=== PATIENT | female | born 1950 | race Caucasian/White ===

== ENCOUNTER 2023-04-22 08:08 | Outpatient (OUT) | payer MEDICARE, SELFPAY ==
[2023-04-22 09:03] LABS: Basophils Percent Auto 0.5 % (0.2-2.0); Eosinophils Absolute Auto 0.1 10^3/uL (0.0-0.7); Eosinophils Percent Auto 1.6 % (0.9-7.0); Hematocrit 41.9 % (36.0-48.0); Hemoglobin 13.3 g/dL (12.0-16.0); Immature Granulocytes Abs Auto 0.02 10^3/uL (0.00-0.03); Immature Granulocytes Pct Auto 0.3 % (0.0-0.5); Lymphocytes Absolute Auto 1.7 10^3/uL (1.2-3.8); Lymphocytes Percent Auto 23.7 % (20.5-60.0); Mean Corpuscular HGB Conc 31.7 g/dL (29.9-35.2); Mean Corpuscular Hemoglobin 28.2 pg (26.7-34.0); Mean Corpuscular Volume 88.8 fL (81.0-99.0); Mean Platelet Volume 8.9 fL (9.5-13.5); Monocytes Absolute Auto 0.5 10^3/uL (0.3-0.8); Monocytes Percent Auto 7.4 % (1.7-12.0); Neutrophils Absolute Auto 4.8 10^3/uL (1.4-6.5); Neutrophils Percent Auto 66.5 % (43.0-75.0); Platelet Count 319 10^3/uL (150-450); Red Blood Count 4.72 10^6/uL (4.20-5.40); Red Cell Distribution Width 12.1 % (11.0-15.0); White Blood Count 7.3 10^3/uL (4.0-11.0)
[2023-04-22 11:33] LABS: Alanine Aminotransferase 32 U/L (14-59); Albumin Level 3.5 g/dL (3.4-5.0); Alkaline Phosphatase 46 U/L (46-116); Anion Gap 11.9; Aspartate Amino Transferase 25 U/L (15-37); BUN Creatinine Ratio 22.4; Bilirubin Total 0.5 mg/dL (0.2-1.0); Calcium 9.5 mg/dL (8.5-10.1); Carbon Dioxide 31.2 mmol/L (21.0-32.0); Chloride 102 mmol/L (98-107); Chol HDL Ratio 2.7; Cholesterol 207 mg/dL (<=200); Estimated GFR (African America >60 (>=60); Estimated GFR (Non-African Ame >60 (>=60); Globulin 3.5 g/dL; Glucose 102 mg/dL (74-106); HDL Cholesterol 76 mg/dL (40-60); Potassium 4.1 mmol/L (3.5-5.1); Sodium 141 mmol/L (136-145); Triglycerides 109 mg/dL (<=150); VLDL CHOLESTEROL 21.8 mg/dL
== END 2023-04-22 08:09 | disposition home or self-care (01) ==
LOC: LAB 08:13
PROVIDERS: PCP Family Medicine; Visit Provider Family Medicine
DX: Z00.00 Encounter for general adult medical examination without abnormal findings (principal); I10 Essential (primary) hypertension
CPT/HCPCS: 36415; 80053; 80061; 85025

== ENCOUNTER 2023-12-10 10:21 | Outpatient (OUT) | payer MEDICARE, SELFPAY ==
--- NOTE | 2023-12-10 | MM_ITS ---
Patient Name: SLADE SHEPHERD MR#: [id number] : 1950 Exam Date: 12/10/2023 Ordering Doctor: DR Cartachita Ga M.D. RADIOLOGY REPORT PROCEDURE: MM TOMOSYNTHESIS SCREENING BI COMPARISON: MG MAMM SCREEN 3D ELOISE CAD, 07/11/2021. MG MAMM DX 3D LT CAD, 01/10/2021. MG MAMM SCREEN 3D ELOISE CAD, 06/22/2020. MG MAMM ELOISE SCRN W CAD DIG, 05/07/2010. INDICATIONS: SCREENING Calculator Name NCI Breast Cancer Risk Assessment Tool 5 Year Breast Cancer Risk 1.40% Lifetime Breast Cancer Risk 3.80% Personal Breast Cancer No Personal Ovarian Cancer No Treatments None Family Cancers Sister with lung cancer at age 59. LOCATION: [facility] BREAST COMPOSITION: The breasts are heterogeneously dense,which may obscure small masses. FINDINGS: DIAGNOSTIC CATEGORY 2--BENIGN FINDING: RIGHT BREAST: No significant suspicious finding. Scattered benign-appearing calcifications are present. No significant change has occurred. LEFT BREAST: No significant suspicious finding. Scattered benign-appearing calcifications are present. No significant change has occurred. RECOMMENDATIONS: ROUTINE MAMMOGRAM AND CLINICAL EVALUATION IN 12 MONTHS. PLEASE NOTE: A NORMAL MAMMOGRAM DOES NOT EXCLUDE THE POSSIBILITY OF BREAST CANCER. A CLINICALLY SUSPICIOUS PALPABLE LUMP SHOULD BE BIOPSIED. Dictated by: Luis Wells M.D. on 12/12/2023 at 12:45 Approved by: Luis Wells M.D. on 12/12/2023 at 12:49
--- OUTSIDE RECORDS SUMMARY | 2023-12-10 10:41 | XMS_ITS | CCD ---
Author Organization [facility] CliniSyny Care Team Providers Care Cardiac Specialist Name Role Phone LUIS, DR CATRACHITA Steele Admitting Unavailable LUIS, DR CATRACHITA Steele Attending Unavailable SMITH, DR CATRACHITA Steele Primary Care Unavailable WEST, DR TRUDI Morris Consulting Unavailable RENETTA, DR CECILY Sierra Consulting Unavailable SMITH, DR CATRACHITA Steele Consulting Unavailable LUIS, DR CATRACHITA Steele Admitting Unavailable SMITH, DR CATRACHITA Steele Attending Unavailable SMITH, DR CATRACHITA Steele Primary Care Unavailable WEST, DR TRUDI Morris Consulting Unavailable LUIS, DR CATRACHITA Steele Consulting Unavailable LUIS, DR CATRACHITA Steele Admitting Unavailable SMITH, DR CATRACHITA Steele Attending Unavailable SMITH, DR CATRACHITA Steele Primary Care Unavailable SMITH, DR CATRACHITA Steele Consulting Unavailable OleApolinar morales Unavailable Gaby Mohan Unavailable MD Gaby Mohan Attending Provider REJI ALANIZ Attending Unavailable Catrachita Smith Primary Care Unavailable REJI ALANIZ Admitting Unavailable Catrachita Smith Primary Care Unavailable José Miguel Martinez Admitting Unavailable José Miguel Martinez Attending Unavailable Catrachita Smith Unavailable Asaad, Imad Unavailable MD Catrachita Smith Primary Care Provider MD Niecy Caceres Attending Provider [phone] MD Catrachita Smith Primary Care Provider MD Morris Imronda Attending Provider [phone] Catrachita Smith Primary Care Unavailable Asaad, Imad Admitting Unavailable Asaad, Imad Attending Unavailable Catrachita Smith Primary Care Unavailable Asaad, Imad Admitting Unavailable Asaad, Imad Attending Unavailable Allergies Allergy Classification Reported Allergen(s) Allergy Type Date of Onset Reaction(s) Facility (1 source) No Known Medication Allergies; Translations: [No Known Medication Allergies] Propensity to adverse reactions to drug (disorder) [facility] Repository (4 sources) Vaccine product containing Influenza virus antigen (medicinal product) Drug allergy 8 Unknown [employer] Other (4 sources) patient allergy list reviewed by nurse or physicia Propensity to adverse reactions 6 Comment:Done [employer] Other (4 sources) Allergies Reconciled Propensity to adverse reactions Unknown [employer] Other (1 source) Influenza Virus Vaccines Drug allergy (disorder) 4 [facility] Repository Medications Current Medications Medication Drug Class(es) Dates Sig (Normalized) Sig (Original) Diclofenac (5 sources) Nonsteroidal Anti-inflammatory Drug Voltaren 1 % as directed Externally Active Voltaren 1 % as directed Externally Active hydroCHLOROthiazide 25 mg / lisinopril 20 mg oral tablet (11 sources) Thiazide Diuretic, Angiotensin Converting Enzyme Inhibitor Start: 05-28-2023 End: 05-28-2023 take 1 tablet by mouth once daily Lisinopril-Hydrochlorothiazide Active 1 TAB PO Daily May 28, 2023 1:50pm take 1 tablet by vaughn th once daily Lisinopril-hydroCHLOROthiazide 20-25 MG TAKE 1 TABLET BY MOUTH DAILY Active omeprazole 40 mg delayed release oral capsule (3 sources) Proton Pump Inhibitor Start: 08-11-2023 take 40 mg by mouth once daily Omeprazole Active 40 MG PO Daily August 11, 2023 12:31pm Start: 05-29-2023 End: 08-11-2023 take 40 mg by mouth twice daily Omeprazole Discontinued 40 MG PO Twice daily May 29, 2023 1:00am August 11, 2023 12:32pm rosuvastatin calcium 10 mg oral tablet (12 sources) HMG-CoA Reductase Inhibitor Start: 05-28-2023 End: 05-28-2023 take 10 mg by mouth once daily Rosuvastatin Active 10 MG PO Daily May 28, 2023 1:50pm Start: 12-25-2021 take 1 tablet by vaughn th once daily Crestor 10mg Crestor 10mg, 1 (one) Tablet daily # 90, 12/25/2021, No Refill. Active oral daily for 0 *Pick strength-form from [employer] for e[employer]* 20 Dec, 2021 Active take 1 tablet by vaughn th once daily Rosuvastatin Calcium 10 MG TAKE 1 TABLET BY MOUTH DAILY Active Completed/Discontinued Medications Medication Drug Class(es) Dates Sig (Normalized) Sig (Original) triamcinolone acetonide 40 mg/ml injectable suspension (12 sources) Corticosteroid Start: 11-06-2021 Kenalog-40 Nov, 20 mg Start: 06-26-2021 Kenalog-40 Jun, 40 mg Start: 06-26-2021 Kenalog -40 mg Jun, 40 mg Problems Active Problems Problem Classification Problem Date Documented Da te Episodic/Chronic Disorders of lipid metabolism (12 sources) Hyperlipidemia, unspecified; Translations: [Hyperlipidemia] Onset: 07-11-2021 Chronic Essential hypertension (11 sources) Essential (primary) hypertension; Translations: [Essential hypertension] Onset: 07-13-2021 Chronic Fever of unknown origin (5 sources) Fever, unspecified; Translations: [Fever] Onset: 04-16-2021 Episodic Osteoarthritis (16 sources) Osteoarthrosis of the carpometacarpal joint of the thumb; Translations: [Unilateral primary osteoarthritis of first carpometacarpal joint, right hand] Onset: 10-09-2021 Resolved: 11-06-2021 Chronic Other bone disease and musculoskeletal deformities (1 source) Other specified disorders of bone density and structure, unspecified site; Translations: [OTH D/O BONE DEN STRUCT UNS SITE] Onset: 07-13-2021 Episodic Other circulatory disease (4 sources) Elevated blood-pressure reading without diagnosis of hypertension; Translations: [Elevated blood-pressure reading, without diagnosis of hypertension] Episodic Other connective tissue disease (7 sources) Dupuytren's disease; Translations: [Palmar fascial fibromatosis [Dupuytren]] Episodic Other gastrointestinal disorders (1 source) Other dysphagia Episodic Other gastrointestinal disorders (1 source) Dysphagia, unspecified; Translations: [Dysphagia, unspecified] Onset: 05-29-2023 Episodic Other injuries and conditions due to external causes (4 sources) History of fall; Translations: [History of falling] Episodic Other nutritional; endocrine; and metabolic disorders (4 sources) Body mass index 25-29 - overweight; Translations: [Body mass index (BMI) 28.0-28.9, adult] Episodic Other screening for suspected conditions (not mental disorders or infectious disease) (10 sources) Encounter for screening mammogram for malignant neoplasm of breast; Translations: [Other abnormal and inconclusive findings on diagnostic imaging of breast] Onset: 01-10-2021 Episodic Residual codes; unclassified (1 source) Asymptomatic menopausal state; Translations: [ASYMPTOMATIC MENOPAUSAL STATE] Onset: 07-13-2021 Episodic Residual codes; unclassified (1 source) Family history of malignant neoplasm of trachea, bronchus and lung; Translations: [FAM HX MALIG NEOPLSM TRACH BRON LNG] Onset: 07-13-2021 Episodic Residual codes; unclassified (4 sources) Postmenopausal state; Translations: [Asymptomatic menopausal state] Episodic Residual codes; unclassified (4 sources) Immunization refused ; Translations: [Immunization not carried out because of patient refusal] Episodic Unclassified (2 sources) CONTACT W/AND (SUSP) EXPOS COVID-19; Translations: [CONTACT W/AND (SUSP) EXPOS COVID-19] Onset: 04-16-2021 Unclassified (1 source) Esophagitis, unspecified without bleeding; Translations: [Esophagitis, unspecified without bleeding] Onset: 08-11-2023 Viral infection (1 source) COVID-19; Translations: [COVID-19] Onset: 04-16-2021 Past or Other Problems Problem Classification Problem Date Documented Da te Episodic/Chronic Genitourinary symptoms and ill-defined conditions (4 sources) Dysuria; Translations: [Dysuria] Onset: 06-23-2014 Episodic Other connective tissue disease (3 sources) Trigger thumb, left thumb Onset: 06-26-2021 Resolved: 11-06-2021 Episodic Other connective tissue disease (3 sources) Palmar fascial fibromatosis [Dupuytren] Onset: 06-26-2021 Resolved: 11-06-2021 Episodic Other connective tissue disease (2 sources) Pain in right hand Onset: 10-09-2021 Resolved: 11-06-2021 Episodic Other connective tissue disease (1 source) Trigger finger, right ring finger Onset: 11-06-2021 Resolved: 11-06-2021 Episodic Spondylosis; intervertebral disc disorders; other back problems (4 sources) Neck pain; Translations: [Cervicalgia] Onset: 12-22-2013 Episodic Unclassified (1 source) CONTACT W/AND (SUSP) EXPOS COVID-19; Translations: [CONTACT W/AND (SUSP) EXPOS COVID-19] Onset: 04-12-2021 Urinary tract infections (4 sources) Urinary tract infectious disease; Translations: [Urinary tract infection, site not specified] Onset: 10-31-2015 Episodic Results Test Name Value Interpretation Reference Range Facility Amphetamine Screen Ql (U)Ord ered By: Niecy Caceres on 08-11-2023 Amphetamines Ql (U) Negative Negative [facility] Barbiturates [Presence] in U rine by Screen methodOrdered By: ronda Asaad on 08-11-2023 Barbiturates Screen Ql (U) Negative Negative [facility] Benzodiazepines Screen Ql (U )Ordered By: ronda Asaad on 08-11-2023 Benzodiazepines Ql (U) Negative Negative [facility] Benzoylecgonine [Presence] i n Urine by Screen methodOrdered By: ronda Caceres on 08-11-2023 Benzoylecgonine Screen Ql (U) Negative Negative [facility] Cannabinoids [Presence] in U rine by Screen methodOrdered By: ronda Asaronda on 08-11-2023 Cannabinoids Screen Ql (U) Positive Negative [facility] Comment on above: These are unconfirme d results and should not be used for legal purposes. Drug Cut-Off Concentration: AMPH 1000 ng/mL TATI 200 ng/mL FIFI 200 ng/mL COCM 300 ng/mL OP 300 ng/mL PCP 25 ng/mL THC 20 ng/mL Drug Screen,Urineon 08-11-19 24 Amphetamine Screen,Urine Negative Normal Negative [facility] Comment on above: Performed By: #### U RDS #### [facility] [address] Barbiturate Screen,Urine Negative Normal Negative [facility] Comment on above: Performed By: #### U RDS #### [facility] [address] Benzodiazepines Screen,Urine Negative Normal Negative [facility] Comment on above: Performed By: #### U RDS #### [facility] [address] Cannabinoid Screen,Urine Positive High Negative [facility] Comment on above: Result Comment: Thes e are unconfirmed results and should not be used for legal purposes. Drug Cut-Off Concentration: AMPH 1000 ng/mL TATI 200 ng/mL FIFI 200 ng/mL COCM 300 ng/mL OP 300 ng/mL PCP 25 ng/mL THC 20 ng/mL PERFORMED BY: [place] [address] PATHOLOGIST HYDROLOGIST TAYLOR GOMEZ M.D. Performed By: #### U RDS #### [facility] [address] Cocaine Screen,Urine Negative Normal Negative [facility] Comment on above: Performed By: #### U RDS #### [address] Opiate Screen,Urine Negative Normal Negative [facility] Comment on above: Performed By: #### U RDS #### [facility] [address] Phencyclidine Screen,Urine Negative Normal Negative [facility] Comment on above: Performed By: #### U RDS #### [address] Opiates [Presence] in Urine by Screen methodOrdered By: Imronda Asaronda on 08-11-2023 Opiates Screen Ql (U) Negative Negative [facility] Phencyclidine Screen Ql (U)O rdered By: Imad Asaad on 08-11-2023 Phencyclidine Ql (U) Negative Negative [facility] Amphetamine Screen Ql (U)Ord ered By: Imad Asaad on 05-29-2023 Amphetamines Ql (U) Negative Negative [facility] Barbiturates [Presence] in U rine by Screen methodOrdered By: Imad Asaad on 05-29-2023 Barbiturates Screen Ql (U) Negative Negative [facility] Benzodiazepines Screen Ql (U )Ordered By: Imad Asaad on 05-29-2023 Benzodiazepines Ql (U) Negative Negative [facility] Benzoylecgonine [Presence] i n Urine by Screen methodOrdered By: Niecy Caceres on 05-29-2023 Benzoylecgonine Screen Ql (U) Negative Negative [facility] Cannabinoids [Presence] in U rine by Screen methodOrdered By: Niecy Caceres on 05-29-2023 Cannabinoids Screen Ql (U) Positive Negative [facility] Comment on above: These are unconfirme d results and should not be used for legal purposes. Drug Cut-Off Concentration: AMPH 1000 ng/mL TATI 200 ng/mL FIFI 200 ng/mL COCM 300 ng/mL OP 300 ng/mL PCP 25 ng/mL THC 20 ng/mL Drug Screen,Urineon 05-29-19 24 Amphetamine Screen,Urine Negative Normal Negative [facility] Comment on above: Performed By: #### U RDS #### [address] Barbiturate Screen,Urine Negative Normal Negative [facility] Comment on above: Performed By: #### U RDS #### [place] [address] [place] Benzodiazepines Screen,Urine Negative Normal Negative [facility] Comment on above: Performed By: #### U RDS #### [address] Cannabinoid Screen,Urine Positive High Negative [facility] Comment on above: Result Comment: Thes e are unconfirmed results and should not be used for legal purposes. Drug Cut-Off Concentration: AMPH 1000 ng/mL TATI 200 ng/mL FIFI 200 ng/mL COCM 300 ng/mL OP 300 ng/mL PCP 25 ng/mL THC 20 ng/mL PERFORMED BY: [place] [address] PATHOLOGIST HYDROLOGIST TAYLOR GOMEZ M.D. Performed By: #### U RDS #### [place] [address] [place] Cocaine Screen,Urine Negative Normal Negative [facility] Comment on above: Performed By: #### U RDS #### [place] [address] [place] Opiate Screen,Urine Negative Normal Negative [facility] Comment on above: Performed By: #### U RDS #### [facility] [address] Phencyclidine Screen,Urine Negative Normal Negative [facility] Comment on above: Performed By: #### U RDS #### [facility] [address] [place] [id number] [place] Camron 05-29-2023 L Specimen: [id number] Received: 05/30/23 Status: BIA Mari Num: [id number] Spec Type: Surgical Subm Dr: Niecy Caceres MD Tissues: A Esophagus Biopsy (ESOPHAGEAL STRICTURE) Procedures: HE/2, Gross/Micro L4 Age/ Patient Sex Location Account Attending Physician Alana Seth 73/F [id number] Niecy Caceres MD SPEC NUM: [id number] RECD: 05/30/23 STATUS: BIA MARI NUM: [id number] BELA: 05/29/23 DR: Niecy Caceres MD ENTERED: 05/30/[address]: SPEC TYPE: Surgical DEPT: S ORDERED: HE/2, Gross/Micro L4 ORDERED: HE/2, Gross/Micro L4 Pathological Diagnosis Esophageal stricture biopsy: -Squamocolumnar mucosa with mild chronic GERD, including mildly associated stromal chronic inflammation, moderate reactive changes of the various epithelial components, and 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 Entirely submitted in one cassette labeled A1. CPT Codes 52670 Specimen: [id number] Received: 05/30/23 Status: BIA Mari Num: [id number] Spec Type: Surgical Subm Dr: Niecy Caceres MD Tissues: A Esophagus Biopsy (ESOPHAGEAL STRICTURE) Procedures: HE/2, Gross/Micro L4 Patient: Alana Seth [id number] (Continued) Signed (signature on file) Susan Eli MD 06/02/231943 Normal [facility] Opiates [Presence] in Urine by Screen methodOrdered By: Niecy Caceres on 05-29-2023 Opiates Screen Ql (U) Negative Negative [facility] Phencyclidine Screen Ql (U)O rdered By: Niecy Caceres on 05-29-2023 Phencyclidine Ql (U) Negative Negative [facility] Coding Summaryon 02-21-2023 Coding Summary HTMLBase 64 VnmctldpWLv4zXb+PGhl YWQ+CJ3INHVaZ91jkVUy bD5xX2FCSVrFLfwuVGZJ MOkRCxHufbMpKX9vjDGl ZXJu IC8+RB7jLHVmEcxzgKMb c3L0cFI7J23jhy0iBNrj kQS9PDNlGuUlaciiu7im wHb1YYthTvjsTlJd AAGgxH03QNR2rX84Tq99 oYYzaZDid7jfrGx9BrVo EUTdQBW3wOpzKUmlx7Up WRMgP07voHQwv7R5 IGNvbGxhcHNlOyBlbXB0 eR2iQPovuiydd5giwomf Jtg3zo42wSFil7E7mVZ3 Q6EtezD1RMFxtFEe XmiswIYHlV6slisju1ud kpjwYcIvYMOyVEc7LKo8 NMQxcMfeLsCtTG98RZY9 FILxwuJlI3UuCTRe tOiaBjR4x2V5Oy6TD9QU TwtlJ6ANJTYKXHprsOX+ WG18to27H7MaHflgSal9 FPMkHRD3hOZ4bP2p LVGhYEapn4X9mBE9A1De jzIymj6yr6wtQVEoAFif K26hwWGra6H4NWMloIV5 DPAytApmBdNdyR40 Oyc+PYFbpMiww7LbZfrx k3rux1qqqJe6AewcBKGy hxDwtVqaKNU0j5QuUd7l CIOrtXN4mYP9vJ3m GjYiClS6LWjeH823GhDx bHNvTecdD76aB9JloSS+ BHQpNyh6FJDrySazKZ0i P3OhTVKcmelpbMRz dRpvGW3fZRGmkrkqLHTp gG0xYCLnC5d7VsYvDnQ1 TFirA4QbDSTsxvrgBa77 gJ5qVpFrVnY6PGuc O1WrlyS4FMYhxSWqYUwm TQC6F78rk6R5OIPpYCZi FWG7sEL0wS5iqZbaaggf bGVmdDsgdmVydGlj XJefNEmjN590OAWqpPmb PkNvZGluZyBEYXRlOiAg MTEvMTcvMjAyMzwvdGQ+ MMRuAFA4vNavDPSb zKSfRPgzUo4yaVxdvTiw NO4gPXVspxutSHCbdB0y AFIqlLMemTweZE9sEHVw ffmlk877CvKtXDY7 TZAaaKEwQ8IfeX4cRwSw WORgLRYdH3QtfOOuHWvh P984BImpZlO8MBGukiZo Q6GnCASvyWslArF5 y6Z2Ix9Yt8WirkieG2Nl gDUzDdZsFcqvGGw2C0By PjwvdHI+OR91VUUdNF73 OFp9MUU8fQizVPer BNKnT6CuhA0kSvKeXMQc ZGRkOyc+PHRhYmxlIHdp ZHRoPScxMDAlJyBzdHls JW1eUj6nKWCaGZRh nDnyxGYvUkEmp1glFPJy JUxzFZ9dtAhwD3IpgKZ8 EUOeq8c5Mt49H69qF7Cg dXA+HPOzsDJ8lYG6 zD6uGyTyDdG1UUcpZ343 HtCkhDAjRogxi9dkr8hx eSz9MkS6GXFbuaMkpTii ETB2z0KxMa61M39l IHdpZHRoPSIxNSUiIHZh dJpirx2qcD7gLp9+PGNv oXG3aYM9rF5iEgXiYkH8 AEtaU530ZbDzbSMt Zknkb5bji6lvfXo5MiGm QIGrckXafTwtPNN0d5Tj Gb22E4FtxHmtx0EvRlj6 ur31nAUur3N7wQN3 L2LaBRKvvdlsmKLwbPzs PE5nMTUutkyuCKMsoF4i SSArD4w2YeLoSrI0MVpf F7BtthP5LREjoUYr UQHwjLIRiE4slcusz8lr zblxOtHaTWEpSJd8WTf8 NIOaeLbrPrPtNUG2NuV4 XWC9pBJsyA0ngEdp igjhlD2bAtr+GOO8wZZx nCRJUI8iYfyjfWX+PHRk OUP0oSclATsoIOPkcJ8g HONsF7l9SzNaBuB6 FDiiU1GonxH8NTQzhKGa YJNglILPfN0jldcwu3vm qpvjSlIwZZWvANx2KJg4 LWFsaWduOiBsZWZ0 YpL9AUU3rNKphT7ogPqi oyluyI1aLww+QmlydGgg IQR7NEn4U8TbKpy1XSDr cIxdKK0flYCzXTyw Ws2yzZikdLwgHP8oAJQz tsicx846YeYwz2yiTZZj zQTxCPmbHFY0C95pf4C6 ZUVeKYFgNDA6nSR9 zC0usDzsfguwrWTlkIyk aiXgjJwdFTwlUGutD608 DGWtkPqsHwDkPJq6Y4Mf Las6LUZtqVeqNJ7x vWQiHYfwUj1mlYqlmLme JB3zWGFuzyalf350XpVt e0bbETAomFWpKBhpHZS6 V37qd8M7GUZcPRWa RSF1nJC1sJ3knLcznjls bGVmdDsgdmVydGljYWwt JIkhD946RNItzSvtKhPg jQe7D1CyCrk8BVDg wQgoGU5dhSUyFKxwLx7v wMaqwPhxZZ5iQYCyijqf d240NbBza6nlORAjrURf FUnrZVY8Y44kh8R1 FGYmZTKlONU8fZT5rV9q bGlnbjogbGVmdDsgdmVy eWxhGJjkUPlhV143VXYw cDsnPlBhdGllbnQg YDgwKKa6X9ViJgfcvQG+ DN76ANMzNB59yAIvvXLo l2phxYx7KhAmAFKwAZE0 eMipXLtpq9VaKMDk O60zpHImp9D0ODWrrBwh lHXrAdZpiBS6aX8wUKmz csaex9yhgpiaTraey6ur uz43yO15A51mAVrb ZHRoPSIzMCUiIHZhbGln ju3zsT6mZj7+PGNvbCB3 uML6lC3zMSCyNyE6GScf Z118NoTgrIClDrcv s9bau5fpvMh8OrG7UUSa olAjhBzaEYR2e4JdEc08 X53aGNzoADGjNKWeMEAq YRCxwTwoum8cbF4r Ii8+FQGkeKE4yER9dY9h CfYsJbZ0FDgaK243ErNs oUIfUhtuY68kS7KquNI+ TOMkXbr1MYLieMar LU7tcNVoZVfyDx9jNZS8 BhZcLfEuQLbzJ2UkJHQg lkrxiocgdWG4QQUdXDIa tD05Oz7plYeiYAIt aEUThD5unlbuv6nhboiw GuWfWLNwNKn9KSd5GRPk rSvrBlJhVUI0QkA6NVW2 nHSceE5wgHilhdry wG4qQ1NpFVRxsjzpVn02 yU5rBbNiDcL7HHoaTsu+ P44GRGnSHujaJv1YEj0I HH76WZ34oZOfi0M2 kFC9P8UxUWXfhunmmgoi nEB8EIFdRCMjlY35iWMn TKuzBg5yi0N1p535EURc KJGacQ07Fc7cmQdf VNVijTAUzJ6rxibvp1hv xkyqOqCrNKSpYNe0VVj9 NXRtjFjlEwOnOWC1VeP7 OGH7fQGpqI5ijLvt ytztiN5wYsc+MTAvMjYv LTk9FxjebMA+PHRkIHN0 iCkjRDbxKEUfcP8uTUKa O9s4EwKbMwQ1KIin W4ErTRThwonrZd51nC1q FbZnFjJ8WRyxU1WvftT6 INVzpCUnAYeqOZF9Y12p t6I4OTBpFUKsRUD7 fND4lX4uwWrigjazgQEa dDsgdmVydGljYWwtYWxp L309SNJyuMpfTzveYEae WRJhFG47QE59pIZm t8W3mTP7U5HtCUGexbhu jfznvIB3CYScLNJrvE28 zSAzEXafQr0xk7F1f282 AGIyAHJdlH07Dq6a cXqwZQJywBNLaN9kycua o7gozojyOfInNYIrRYa6 GDs6JAAbcIvvObHyZFS3 EfY9EUV9sNNbjQ6e mMoluzfteZ1mTbz+RkVN UFjBTG67AA93aQBvn0F7 sFQ4O3BaYWWzvjyaqfhj yQB2UFXqWIUwwY46 gZBiIMpeDc4xp2I3s214 TSJvHZLejH45Fz1vyRgo ARBisXCNiX1hdiroo2xi cjogIzAwMDAwMDt0 JOg6GMQnlEgaYtKnUOT7 YgY0WOR8mSGmiG0wrLph crnnwS4aSir+Z2A4F3Cy PjwvdHI+GD83OUXv CJ83nVFaaCQmw0dsqHe5 YvOwZBReUBB3oFnxODbq j9SbZNQvO77ltOTnr7I5 IGNvbGxhcHNlOyBl cIG8vY1pGOyjstwbi4di yddfNubog0axhg95sB51 C66mUUoqBTUfEZPoKNRg KBQxhGqrdd3lkW1a Ii8+IMQwwKP3eWF6kP4y LaGvVkT9DOvkM933YqAf eVUfUjpck7flr7jznFm1 IjIwJSIgdmFsaWdu RTP0g0UhOd38C40wPMwe ZHRoPSIyMCUiIHZhbGln oq8awD0gHz7+UQ2zl5hq cf63qF17bNJ+PHRk UXL8dXnlMZoqGKAxrX2q YTsqKvN2JKAlFgVdqI52 pMAhXFnsSv4wmAjsaTdv WD5kCXYrhqrwy625 JeHnq0lqUMAplQRvBAry LEH9A83ky4W2WWJjKERo YQS2zSS9pJ3ygEjoihxc bGVmdDsgdmVydGlj DSpcPCdmS137SCOhuAyj GwAtxMGhF7bnoqHWUP3f OjwvdGQ+ECLlSFQ1sYzc TRkyRUNfcS9iQBHp R7x0WoJxSpC4ZOmcK0Zx raJ6MDUlpXYrTLJklNLK lE8dwckvy9dcggiwJgBr KWToVWf3KYb7PFDc tZufGbGaGQV8BwG8JBL1 uYJxmI5kuClebhbraT1z Oyc+RklOOjwvdGQ+PHRk GHR1bIbnGVmuTRJw rR7wZMKjD5n3VlSrWkY0 VUyuU9OuuwX1HFRcrXGa BNEcjPVSdN5cefqof1ih cjogIzAwMDAwMDt0 RBk2GTQhsRizTqXtAQM6 GkE1QWZ4eNIcmX6anPwq yuwjuX5zUao+TVJOOjwv dGQ+WEArPQL8bYrk DTlkREAroC5vUVKlI2p9 GePrDaQ4XEivB2VbwtC8 AZPsmZTmCUGfgNYVeC2f qpecg2poqwbsTvDz CVAnQEt4VMd4OLAlwWrj HaJtEZY3BqP1UMR0oUKn gY1fuNykgupqrS7oNhi+ MCZ5ONZ7YS01SM39 L5UeUtuirPNqvZX+PHRh YmxlIHdpZHRoPScxMDAl CeYyfSctVR5oJg5xLUJc LWNvbGxhcHNlOiBj b2x (more content not included)... [facility] ED Clinical Summaryon 2022 ED Clinical Summary [facility] ? Urgent Care [address] [place] [id number] Clinical Summary PERSON INFORMATION Name: USHA SETH Age: 73 Years Sex: FEMALE : 1950 MRN: Acct#: Visit Reason: UC - Ear Discharge; RT EAR DISCHARGE Arrival: 02/14/2023 10:21:53 Discharge: 02/14/2023 10:54:00 LOS: 000 00:33 Check In: 02/14/2023 10:21:53 Checkout: 02/14/2023 10:54:00 Address: [address] [place] [id number] PCP: Catrachita Smith MD PROVIDER INFORMATION Provider Role Assigned Unassigned Hyun Elizondo PRODUCTION CLERK Nurse 02/14/2023 10:24:00 REJI ALANIZ ED PA 02/14/2023 10:24:08 VITALS INFORMATION Vital Sign Triage Latest Temperature Tympanic Temperature Temporal Artery Pulse Rate O2 Sat 97 % 97 % Respiratory Rate Blood Pressure /87 mmHg /87 mmHg MEDICAL INFORMATION Medications Given: Allergy Information: No Known Medication Allergies PHYSICIAN DOCUMENTATION DISCHARGE INFORMATION: Discharge Disposition: Home Discharge Location: Home PATIENT EDUCATION INFORMATION Instructions: Abrasion Follow-Up: With: Address: When: Catrachita Smith [address] [place] [address], [facility] [place] [address] [facility] (1) Within 2 to 4 days Comments: Follow-up with primary care provider next few days, continue with eardrops as discussed. Return for any worsening issues. DIAGNOSIS: Ear canal abrasion Patient Understands: Yes - Patient/family/careg iver verbalizes understanding of instructions given Comment: [facility] ED Patient Summaryon 023 ED Patient Summary [facility] ? Urgent Care [address] [place] [id number] PATIENT DISCHARGE INSTRUCTIONS Patient Information Name: USHA SETH Age: 73 Years Date of : 1950 [facility]: [id number] Reason For Visit: UC - Ear Discharge; RT EAR DISCHARGE Arrival Time: 02/14/2023 10:21:53 Primary Care Physician: Catrachita Smith MD Attending Physician: REJI ALANIZ Comment: Patient Education With: Address: When: Catrachita Smith [address] [place] [address] [place] [address] Business (1) Within 2 to 4 days Comments: Follow-up with primary care provider next few days, continue with eardrops as discussed. Return for any worsening issues. Abrasion An abrasion is a cut or a scrape on the surface of the skin. An abrasion does not go through all the layers of the skin. It is important to care for an abrasion properly to prevent infection. What are the causes? This condition is caused by rubbing your skin on something or falling on a surface, such as the ground. When your skin rubs on something, some layers of skin may rub off. What are the signs or symptoms? The main symptom of this condition is a cut or a scrape. The cut or scrape may be bleeding, or it may appear red or pink. If your abrasion was caused by a fall, there may be a bruise under your cut or scrape. How is this diagnosed? An abrasion is diagnosed with a physical exam. How is this treated? Treatment for this condition depends on how large and deep the abrasion is. In most cases: ? Your abrasion will be cleaned with water and mild soap. This is done to remove any dirt or debris (such as tiny bits of glass or rock) that may be stuck in your wound. ? An antibiotic ointment may be applied to your abrasion to help prevent infection. ? A bandage (dressing) may be placed on your abrasion to keep it clean. You may also need a tetanus shot. Follow these instructions at home: Medicines ? Take or apply xmkh-qme-qawtiky and prescription medicines only as told by your health care provider. ? If you were prescribed an antibiotic medicine, use it as told by your health care provider. Do not stop using the antibiotic even if you start to feel better. Wound care ? Clean your wound 1 or 2 times a day, or as told by your health care provider. To do this: 1. Wash your hands for at least 20 seconds with mild soap and water. Do this before and after you clean your wound. 2. Wash your wound with mild soap and water and then rinse off the soap. 3. Pat your wound dry with a clean towel. Do not rub your wound. ? Keep your dressing clean and dry as told by your health care provider. ? There are many different ways to close and cover a wound. Follow instructions from your health care provider about caring for your wound and about changing and removing your dressing. You may have to change your dressing one or more times a day, or as directed by your health care provider. ? Check your wound every day for signs of infection. Check for: ? Redness, especially a red streak that spreads out from your wound. ? Swelling or increased pain. ? Warmth. ? Blood, fluid, pus, or a bad smell. Managing pain and swelling ? If directed, put ice on the injured area. To do this: ? Put ice in a plastic bag. ? Place a towel between your skin and the bag. ? Leave the ice on for 20 minutes, 2?3 times a day. ? Remove the ice if your skin turns bright red. This is very important. If you cannot feel pain, heat, or cold, you have a greater risk of damage to the area. ? If possible, raise (elevate) the injured area above the level of your heart while you are sitting or lying down. General instructions ? Do not take baths, swim, or use a hot tub until your health care provider approves. Ask your doctor about taking showers or sponge baths. ? Keep all follow-up visits. This is important. Contact a health care provider if: ? You received a tetanus shot, and you have swelling, severe pain, redness, or bleeding at your injection site. ? Your pain is not controlled with medicine. ? You have a fever. ? You have any of these signs of infection: ? Redness, swelling, or more pain around your wound. ? Warmth coming from your wound. ? Blood, fluid, pus, or a bad smell coming from your wound. Get help right away if: ? You have a red streak spreading away from your wound. Summary ? An abrasion is a cut or a scrape on the surface of the skin. Care for your abrasion properly to prevent infection. ? Clean your wound with mild soap and water 1 or 2 times a day or as often as told. Follow instructions from your health care provider about taking medicines and changing your bandage (dressing). ? Contact your health care provider if you have a fever or if you have redness, swelling, or more pain around your wound. ? Contact your health care provider if you have warmth, blood, fluid, p (more content not included)... Normal [facility] Urgent Care Note- Provideron 02-14-2023 Urgent Care Note- Provider Patient: USHA SETH Age: 73 years Sex: FEMALE : 1950 Associated Diagnoses: Ear canal abrasion Author: REJI ALANIZ Subjective Patient is a 73-year-old female presenting to urgent care with complaint of blood in her right ear canal. States this started yesterday, denies any trauma to her ear canal or using any Q-tips. Denies being on blood thinner. States that she noticed a small amount on her pillowcase and wanted this evaluated. Denies any pain in her ears, nasal congestion or any other problems. Health Status Allergies: No active allergies have been recorded. Objective CONST: -Well-developed well-nourished. -Acute distress: No -Vitals: reviewed. SKIN: -Gross abnormalities: No EYES: -EOM intact, LINDSAY: -Sclera conjunctiva: Unremarkable. ENT: -Left ear canal is clear, tympanic membrane pearly saldivar, right ear canal shows a small abrasion at the 3 o'clock position, dried blood around the abrasion appreciated, tympanic membrane is pearly saldivar, ear canals otherwise unremarkable. NECK: -Supple (oumb-od-ycnir): non-tender. CARD: -Rate and rhythm: Regular RESP: -Respiratory effort and chest excursion with respirations: Normal -Breath sounds equal bilaterally: Clear -Wheezes: No -Rales: No NEURO: -Patient: alert -Oriented to: person, place and time. -Appearance and judgment: appropriate. Impression and Plan Assessment and Plan: Diagnosis: Ear canal abrasion ([id number] S00.419A). Orders Orders Pharmacy: ofloxacin 0.3% otic solution (Prescribe): 10 drop(s), Otic, Daily, for 5 day(s), 5 mL, 0 Refill(s). . Indicated the patient she has a small abrasion of the ear canal which was causing bleeding. Indicated to give her biotic eardrops and she should follow-up primary care provider. Return for any worsening issues or any other problems. Patient is stable will be discharged [Electronically Signed on: 02/14/2023 10:57 EST] REJI ALANIZ [Verified on: 02/14/2023 10:57 EST] REJI ALANIZ [facility] [place] 023 Urgent Care Record [facility] ? Urgent Care [address] [place], [place] [id number] PATIENT DISCHARGE INSTRUCTIONS Patient Information Name: USHA SETH Age: 73 Years Date of : 1950 Reason For Visit: UC - Ear Discharge; RT EAR DISCHARGE Arrival Time: 02/14/2023 10:21:53 Primary Care Physician: Catrachita Smith MD Attending Physician: REJI ALANIZ Comment: Visit Diagnosis: Diagnoses This Visit Ear canal abrasion (S00.419A) UC - Ear Discharge ([id number]) If you received any narcotics, sedation, or any other medication that causes drowsiness for the next 24 hours, unless otherwise directed: ? Do not drive a car. ? Do not operate machinery such as power tools, lawn mowers, drills, sewing machines, or stoves ? Avoid alcoholic beverages and drugs for allergies, nerves, or sleep ? Do not make important personal or business decisions or sign any legal documents With: Address: When: Catrachita Smith [address] [place] [address] [place] [address] Business (1) Within 2 to 4 days Comments: Follow-up with primary care provider next few days, continue with eardrops as discussed. Return for any worsening issues. Medication Information: The exam and treatment you received today in the [facility] were for an urgent problem and are not intended as complete care. It is important for you to follow up with a doctor, nurse practitioner, or physician?s clothing sales assistant for ongoing care. If your symptoms become worse or you do not improve as expected and you are unable to reach your usual health care provider, you should return to the Emergency Department, we are available 24 hours a day. For those patients who have received Radiology results, the interpretation of your X-ray as given to you by our Urgent Care physician is only a preliminary report. The Radiologist will review your films and if there is a change in the diagnosis you will be notified by phone. Please make sure you have provided a working phone number so we can reach you if necessary. In the event that you had a lab culture while you were a patient in the Urgent Care, you will be notified by phone if there is a need to change your antibiotic. Please make sure you have provided a working phone number so we can reach you if necessary. [facility] has provided you with a complete list of medications post discharge. Please inform your r and d lab technician/provider of your visit and for further instruction on these medications. Any specific questions regarding your chronic medications and dosages should be discussed with your primary care physician(s) and/or pharmacist. New Medications [facility], [address] [place] [phone], [phone] ofloxacin otic (ofloxacin 0.3% otic solution) 10 Drops Otic every day for 5 Days. Refills: 0. Additional medications on your home medication list not specifically addressed. Please contact the ordering physician if you have questions about these medications. hydrochlorothiazide- lisinopril (hydrochlorothiazide -lisinopril 25 mg-20 mg oral tablet) 1 tab(s) Oral every day. rosuvastatin (rosuvastatin 10 mg oral tablet) 1 tab(s) Oral every day. Visit Information Allergies: Substance Reaction Symptoms Type Comments No Known Medication Allergies Drug Vital Signs: Vitals and Measurements this Visit (last charted value for your 02/14/2023 visit) Vital Signs This Visit Temperature Oral: 36.7 DegC Peripheral Pulse Rate: 68 bpm Respiratory Rate: 16 br/min Systolic Blood Pressure: 136 mmHg Diastolic Blood Pressure: 87 mmHg SpO2: 97 % Oxygen Therapy: Room air Blood Pressure Method: Automatic Measurements This Visit Height/Length Measured: 162.56 cm Weight Measured: 75.75 kg Body Mass Index: 28.67 kg/m2 BSA Measured: 1.85 m2 Problems List: Problem Onset Comments High blood pressure High cholesterol Patient Education Abrasion An abrasion is a cut or a scrape on the surface of the skin. An abrasion does not go through all the layers of the skin. It is important to care for an abrasion properly to prevent infection. What are the causes? This condition is caused by rubbing your skin on something or falling on a surface, such as the ground. When your skin rubs on something, some layers of skin may rub off. What are the signs or symptoms? The main symptom of this condition is a cut or a scrape. The cut or scrape may be bleeding, or it may appear red or pink. If your abrasion was caused by a fall, there may be a bruise under your cut or scrape. How is this diagnosed? An abrasion is diagnosed with a physical exam. How is this treated? Treatment for this condition depends on how large and deep the abrasion is. In most cases: ? Your abrasion will be cleaned with water and mild soap. This is done to remove any dirt or debris (such as tiny bits of glass or (more content not included)... Normal [facility] Coding Summaryon 06-19-2022 Coding Summary HTMLBase 64 TlgxaowzILz3gKw+PGhl YWQ+XF6IIRDfG06crAHn aL1RA9sGPI2BRSLJAAVK HH9GTD9efSQ0EEeeC0Ko biAv GukazLPyGF56TCo8JGJ3 eLltELclpG1phFIpC3q8 ZcXlXG87rX28YJskBVIc HeO2UeFtnwcdvDIk J2jyPuWspDNuEwi+PHRh YmxlIHdpZHRoPScxMDAl NdGnhTxtBP3gHp9hUYSq LWNvbGxhcHNlOiBj t6djXKAwNPieII6ktTnr G3OroBX5EKYru4v1Hq63 dHI+NVQiTFS9eSmoIGgl d304WcDxb6hgGTP0 uJHjKGqbFAP9H18qb1L0 RRVsRLYuKQG2jBZ2nE2k gVjxoeuqP8VofBHuHhA9 QWH0iZBfwZ9lfZrk ixhvzQ5aRua+W51UCD0Z JGSWBQ4TToc5B5PqYwzb dHI+PQ94AJOsTT58qVQo iSMad1eokDs4AwSx OCMcKGA6qPfxFMppr8Ek VXLbS47dtCMoz0Z4KTDn kHaanEPqIfGhrKW2aW5p YVfihlcni4wmksan Bsgtm5dixk30iN49K17c ZCznJGUaZJQ9AEHqQZJl yQtowq6ptD5cHl0+IDxj h9zop0ymnJd1DvIm VEOhjtOmvPihAOB5y3Up Ru90N2HgcRfsu8VuElv7 yw87fWZjb9E5sAW9WZfd SSAiwJ8iRHucUoV3 KOGgMoCpwV08xNZiSBnn Fl0qfEhdnQolLI1nZESd sqfrQEDtdT5nYHUlzJOy rWcbXO1yPTFwxvqj p967OyEhYLY0GCBngJTb F0HvlG4wWvPtWNJyHQPc F1OdpFPuQJdpJ179UZqh BbW6SOHqprOnK9Mg JIGhwIlgRbD1r1F1Pv8D i0EdtpieRLH3PUfqIUTi RvM1KxRzPqB0F5QdBbd5 KSEjxKiyYN5xM6Ku KDXhqwpiclshtFU6VDWt ZTReeJ89jKThQPqaEp0h u4Y2y550SSJhDYZwoE42 Xp5ueMwpIBBidACR tG2leodwf0vjzgopZfVs TNYuZRl4ILs2RBItzNpg OsFmZOD3ZhK3CRO4rSQo tS1ejPtkvyhrzC0v Oyc+B17jxJ6xFWN5SIO3 yvnfHKBayiJpOP76QD75 P7PyTclulJDgvIQ+PGRp duMceMtwQB1fJrGd v1eyy2SgZQtiE2KxPDLt RThvIum7MQPlNZH8aEN2 qY1vZAOkBWuis1A2nJP5 C7PzcwJulq3dv9ed SKVdJWwnG35owLYov8O3 YSKxeHC0WHDgpZasMlRu sS72Ijl+QEIabYctg2Am Itpki3rce5avwGz8 IjMwJSIgdmFsaWduPSJ0 m4GcMb80U09xMJmbNNSn SITtQKBeFWRciGnods2o nM8kJf2+PGNvbCB3 oJH5qM9xNZIwVfF9BGxj O191IdVnzNTwHryjm6jf o4nsmIk4AyBnLGQqccGt gJqvSSJ7e8UxYz43 U01rTPdbSHHxWURoTSGs SOUhiItmyz5trW2mJo4+ YH7gd3jiyt27nI83wAX+ TXUhEXD2oOvpRWfe XXOvsE2fGNyiWhV2YAQc HkAnzY39cDIkPXwpNt9r jEvryNlmAV6dKOBhcrxg e849RhLan4wcXVTs sYPxDQigGBQ8H07uk4W7 JNQzSMTdFTI2aJG8vY5n bGlnbjogbGVmdDsgdmVy xXfyZTzeGOioB914 IHRvcDsnPlBhdGllbnQg XpSxKXw4Z8WsXhj7TLXb tGylOU4roWFtWHczSk5x nGyozDnuGL2dTCPz qmodu860NdMle6oyIZFf iJAjXJncDAI7T84se7K0 IZGrQHGlVXE2nWR2yL3l bGlnbjogbGVmdDsg wuXocVurZEurADdgY482 IHRvcDsnPkJpcnRoIERh lAS1NX88BB70kVOwa5K9 tTO5O3WbRCSnxfzk mmahqCL0KKGyACBmkJ74 Le1pqIbbQi2zMSHdCPN5 UJFyqSKrW7EyoZ9tCcHl QJVwJOXoC6DywYSt TXroQ649FRtaAzB6LKSv eoRzB4KqBZQdaCjkImW4 j4Y1Eu8CS9G0XX29HD12 yQJjh2X7dRD9R7Gx LOYqhyzyneynzEK5QWZy UBWnnJ79Sz0kdJfaZz0h BRPfPEV0WLSxnJPvR0Er dR7sWfPrOHKvGSJs Y8UbsHFaQNrbX028TRoy UbX4KQVwxcMvA7QkSZDd xAyzIoR9n8T4Ob5GKHv8 YD55LK63yZHdt6U2 mBL4O8JoEXTjxuixdmnn rNW9GJIbORDqaG84Kc6b zVqlBc9gOFPoGXU0NWQl yFXkV6GocH2tRsUw GMRaLJCzD0PthADlQOxs T727KLyqApI1SGUncqQa R8CuSAPwrQzzItO9s4W4 Rl8VHNRcQM95KPF7 lCB0MK95OZ25M2FzZqhs dGFibGU+PHRhYmxlIHdp ZHRoPScxMDAlJyBzdHls CY7hVr7fBUHaOUKl qDlmyBIdOzBgr5jzPJDt QNfxLI9idJixW3ExmEM4 XKXzw6w5Jz39T61jO7Ho dXA+CXFvyBB1wAR0 rT0xNxStReV5XTamH443 ZxGsnCNzMxuhx1rzn0hm rAi7OmG5PQDmlcKqmYaj TEW9h9EbWv98Z10v IHdpZHRoPSIxNSUiIHZh lGaeuu1ibT9pAv2+PGNv tQS2oOD7sB9jUnDbZmF2 KOebM919FtCzsEVa Gbpnt6gnz3gioRw7AqPn XGIibpWywYrbEJM8w2Nb In02V9BgnZtub6JvIik0 sy76xTBee2J7zMY6 Z1VvLQYkciejoQYtaPnf LD1bEWQjgnkqMUDhkL0g MAYeL4p3JsKjUnM9ZCes Y5XnfzL1JNOkvAOa WMhuTSE1B45gt0E9SUXm MQXtERV4cCG0iX7fiNbr bjogbGVmdDsgdmVydGlj FJihGZgiL554QXTm lCerYBThuY2mFSXkuBKf uMpvCD9yACEudiqyAmYP YLdTItPlYDdCVX9RFZaj dGQ+VBEdGDX8mMos UWigXONcrG0jGGIdK4s2 PyWaGdJ5HCndW2AcLPDw edlrKr13aG3cCuObUeD5 EAgeX1BungY8QULx wFXmBElcZEV4W28sa6T0 NFOcYZQxRGO8tRF3hJ3n bGlnbjogbGVmdDsgdmVy wNygMXaoDLnvV767 IUAjnDlfFxXoGgF9HmI2 SCJ4P6MxZjl6ZIOhfIee UY4rwOEzOLjjBp5tvWxa uDznOL1cJYAqwxxu VTUcqD9wCYOqwYQolFee VS9iPPDtsmrrq273DdOv WHC5QHVtrNQgS1RawB2v PfLsNFVqGIKvE1Em nWUqQVovV248TEyzFcP1 OFVoanPgX2UuJZQqxVfo ZrW0g0O4La06UONRPWZz czwvdGQ+PHRkIHN0 bTpnRQkgQHAudZ5cYJLi W1q8CmQdWaL6HMgrA1Rv CQNykeljAz61iD0rNaSw GjI9BWztU3PhuyX7 XJLqgLJtRNtySSN0G96y q3W5TDXsZCRrITW5iFD2 hE9krTkbmrsdoNBnhUus dmVydGljYWwtYWxp T494SSAuvGxrPfLDLBQJ RTwvdGQ+HUZnSUC9wShn IGzhSWXkrZ8cBEPlH5c3 OlQtHyL9SHjlG3Pp GIUnlfohUm61nM4dHxNu DdO9BKyiQ4JxocG1IGWs tHUgKUuoXCP4W24di2H5 SDLdNWWhHWG1cBB4 nL5gbSrwhotfwUEsxVsn huOqoRacLUvtPZzbC714 PSWarMduVu2SYQ83DS33 E1FgPdumbVAliZX+ PHRhYmxlIHdpZHRoPScx UCOgXqGbxIzwAV8xFv7r ZGVyLWNvbGxhcHNlOiBj e0seWPFhACzvIG9u vVexP6MaqGT7VTOkh3u5 Oq10Y53dU5XucHW+PGNv zRZ1mEV0oG6hIrTkJuL4 AFznL445UlInlDNb Swmsm4qtl0pdzZl2RfYj TEGqneDniXhuCWH0q7Sg Uf63C69jUOulMVLgAVVt TXZySAIrpKjcad4z wJ6jJl1+YVYbcZI0eFD3 iS8gMjZpJhM0PQemD586 RsUgtBVsXdsqM05uI6Nx dXA+GMCxQqp5OTZo kVgnEK0mgONiBUsoRy9x QNU3PuKwXjUlETtdH5Tf OLKcjukbjuwanGB9VCLf TLYdbW32Hs7gaZbr Ik1cYYUoSXO0FNMwdXVr B6XrlR9iNfPeNMWvFOJw H2CopYRfELelU911EAsf SbL1SUFhpmPwZ9Lf LKKtqMfuMkJ3q6A5Tq8C bBtttXRgDM9fBoYxZIu2 E3HqLor0YNSqaKotHR3v iNXpEDfzCx0unXhh hAxeYI2vSSGysdoqx464 OeTxz8hfRHMpvZZbLMex KPW2K35wo2G0POJuIODn MQY0sPK4oB7fdAqb bjogbGVmdDsgdmVydGlj ECzxUToeV049ZUGpvCbm CxYNZvg5W9FkJnh5LESr sNehCH0jbGZxHVmo Xq7lqMxbnOfgFH2fDCGu crfdu736WxUhu5sjBHGd hCIqGJguDAM1R79bf1D3 ALMmIRAuVTL4tYU7 vH5fnPsxdbrfzOJhrAsv qsOksFohPVwpEPhnX954 SEUfoNcmJq6TUun8M7Kf Glm5GWFraIeiTT3m xDHiHMgnXl5kkLcjuPst WP1uQOPrxembk240HaNk n6auWISenZByFPctURK2 R92fm3Q1KRBvNRMi WZW3bFU7xX1cgPwhqcct bGVmdDsgdmVydGljYWwt FFvrB310ZBPhxAhyUpAy eWVyOjwvdGQ+PC90 je05J8LuQcxuUen5VSMu ZKZ8zCE2cZ9dBLQsJSmi q4P2eCU5T0OcryRyuc2x w4nbTBIoQAwbD05d bGF (more content not included)... [facility] Provider Orderson 06-19-2022 Provider Orders [id number]# 1.00OTGTIFF [facility] .Auto Diff 1on 06-18-2022 Auto [place] % 8 % Normal 1-12 [facility] Comment on above: Performed By: #### 7 [id number], [id number] #### [facility] (DEFAULT) [address] [place] [address] Baso Abs# 0.1 x10 Normal 0.0-0.2 [facility] Comment on above: Performed By: #### 7 [id number], [id number] #### [facility] (DEFAULT) [address] [place] [address] Basophils/100 WBC (Bld) 1.0 % Normal 0.2-2.0 [facility] Comment on above: Performed By: #### 7 [id number], [id number] #### [facility] (DEFAULT) [address] [place] [address] Eos Abs# 0.1 x10 Normal 0.0-0.4 [facility] Comment on above: Performed By: #### 7 [id number], [id number] #### [facility] (DEFAULT) [address] [place] [address] Eosinophils/100 WBC (Bld) 1.9 % Normal 0.9-4.0 [facility] Comment on above: Performed By: #### 7 [id number], [id number] #### [facility] (DEFAULT) [address] [place] [address] Lymph Abs# 1.7 x10 Normal 1.3-2.9 [facility] Comment on above: Performed By: #### 7 [id number], [id number] #### [facility] (DEFAULT) [address] [place] [address] Lymphocytes/100 WBC (Bld) 24 % Normal 14-48 [facility] Comment on above: Performed By: #### 7 [id number], [id number] #### [facility] (DEFAULT) [address] [place] [address] [place] Abs# 0.6 x10 Normal 0.0-0.8 [facility] Comment on above: Performed By: #### 7 [id number], [id number] #### [facility] (DEFAULT) [address] [place] [address]35[address] Neut Abs# 4.6 x10 Normal 1.5-9.2 [facility] Comment on above: Performed By: #### 7 [id number], [id number] #### [facility] (DEFAULT) [address] [place] [address] Neutrophils/100 WBC (Bld) 65 % Normal 44-88 [facility] Comment on above: Performed By: #### 7 [id number], [id number] #### [facility] (DEFAULT) [address] [place] [address] CBC w/ Auto Diffon 3 Erythrocyte distribution width (RBC) [Ratio] 12.9 % Normal 11.5-15.0 [facility] Comment on above: Performed By: #### 7 [id number], [id number] #### [facility] (DEFAULT) [address] [place] [address] Hematocrit (Bld) [Volume fraction] 40.8 % High 33.7-40.4 [facility] Comment on above: Performed By: #### 7 [id number], [id number] #### [facility] (DEFAULT) [address] [place] [address] Hemoglobin (Bld) [Mass/Vol] 13.5 g/dL Normal 11.3-15.9 [facility] Comment on above: Performed By: #### 7 [id number], [id number] #### [facility] (DEFAULT) [address] [place] [address] Man Diff? Auto Invalid Interpretation Code [facility] Comment on above: Performed By: #### 7 [id number], [id number] #### [facility] (DEFAULT) [address] [place] [address] MCH (RBC) [Entitic mass] 28 pg Normal 24-34 [facility] Comment on above: Performed By: #### 7 [id number], [id number] #### [facility] (DEFAULT) [address] [place] [address] MCHC (RBC) [Mass/Vol] 33 g/dL Normal 26-37 [facility] Comment on above: Performed By: #### 7 [id number], [id number] #### [facility] (DEFAULT) [address] [place] [address] MCV (RBC) [Entitic vol] 86 fL Normal 81-100 [facility] Comment on above: Performed By: #### 7 [id number], [id number] #### [facility] (DEFAULT) [address] [place] [address] Platelet 333 x10 Normal 138-427 [facility] Comment on above: Performed By: #### 7 [id number], [id number] #### [facility] (DEFAULT) [address] [place] [address] 27843 Platelet mean volume (Bld) [Entitic vol] 6.4 fL Normal 6.3-10.2 [facility] Comment on above: Performed By: #### 7 [id number], [id number] #### [facility] (DEFAULT) [address] [place] [address] RBC 4.77 x10 Normal 3.70-5.30 [facility] Comment on above: Performed By: #### 7 [id number], [id number] #### [facility] (DEFAULT) [address] [place] [address] WBC 7.0 x10 Normal 3.5-10.5 [facility] Comment on above: Performed By: #### 7 [id number], [id number] #### [facility] (DEFAULT) [address] [place] [address] LIPID PROFILEon 07-11-2021 CHOL-HDL RATIO NORM SEE BELOW Normal [facility] Comment on above: Result Comment: 3.3 - 4.4 LOW RISK 4.4 - 7.1 AVERAGE RISK 7.1 - 11.0 MODERATE RISK >11.0 HIGH RISK Performed By: #### L IPID, CMP #### [facility] [address] [address] [address] Liborio Eli Cholesterol [Mass/Vol] 178 mg/dL Normal <=200 [facility] Comment on above: Performed By: #### L IPID, CMP #### [facility] [address] [address] [address] Liborio Eli Cholesterol in HDL [Mass/Vol] 73 mg/dL Critically high 40-60 [facility] Comment on above: Performed By: #### L IPID, CMP #### [facility] [address] [address] [address] Liborio Eli Cholesterol in LDL [Mass/Vol] 93.8 mg/dL Normal [facility] Comment on above: Performed By: #### L IPID, CMP #### [facility] [address] [place] [address] Dr. Liborio Eli Cholesterol.total/Ch olesterol in HDL [Mass ratio] 2.4 {ratio} Normal [facility] Comment on above: Performed By: #### L IPID, CMP #### [facility] [address] [place] [address] Dr. Liobrio Eli HDL NORMAL > or = 60 mg/dl - LOW CARDIOVASCULAR RISK <40 mg/dl - HIGH CARDIOVASCULAR RISK Normal [facility] Comment on above: Performed By: #### L IPID, CMP #### [facility] [address] [place] [address] Dr. Liborio Eli LDL CALC NORMAL SEE BELOW Normal [facility] Comment on above: Result Comment: <100 mg/dl OPTIMAL 100 - 129 mg/dl NEAR OR ABOVE OPTIMAL 130 - 159 mg/dl BORDERLINE HIGH 160 - 189 mg/dl HIGH >190 mg/dl VERY HIGH Performed By: #### L IPID, CMP #### [facility] [address] [place] [address] Dr. Liborio Eli Triglyceride [Mass/Vol] 56 mg/dL Normal <=150 [facility] Comment on above: Performed By: #### L IPID, CMP #### [facility] [address] [place] [address] Dr. Liborio Eli VLDL CALC 11.2 mg/dL Normal [facility] Comment on above: Performed By: #### L IPID, CMP #### [facility] [address] [place] [address] Dr. Liborio Eli MG MAMM SCREEN 3D ELOISE CADon 07-11-2021 MG MAMM SCREEN 3D ELOISE CAD Patient: ALANA SETH Exam Date: 07/11/2021 : 1950 Gender:F Ordering : DR CATRACHITA SMITH M.D. Admission #: [id number] Family : Order #: [id number] CLICK HERE TO VIEW EXAM RADIOLOGY REPORT PROCEDURE: MAMMOGRAM SCREENING 3D BILATERAL CAD COMPARISON: MG MAMM SCREEN 3D ELOISE CAD, 06/22/2020. MG MAMM DX 3D LT CAD, 01/10/2021. INDICATIONS: Screening mammography Calculator Name NCI Breast Cancer Risk Assessment Tool 5 Year Breast Cancer Risk 1.40% Lifetime Breast Cancer Risk 4.20% Personal Breast Cancer No Personal Ovarian Cancer No Treatments None Family Cancers Sister with lung cancer at age 59. LOCATION: [facility] BREAST COMPOSITION: Heterogeneously dense,which may obscure small masses. FINDINGS: DIAGNOSTIC CATEGORY 2--BENIGN FINDING. NO CHANGE FROM COMPARISON. Scattered benign-appearing calcifications are present. Scattered benign-appearing lymph nodes are present. RIGHT BREAST: No significant suspicious finding. LEFT BREAST: No significant suspicious finding. RECOMMENDATIONS: ROUTINE MAMMOGRAM AND CLINICAL EVALUATION IN 12 MONTHS. PLEASE NOTE: A NORMAL MAMMOGRAM DOES NOT EXCLUDE THE POSSIBILITY OF BREAST CANCER. A CLINICALLY SUSPICIOUS PALPABLE LUMP SHOULD BE BIOPSIED. Dictated by: Trudi Castellanos MD on 07/11/2021 at 08:40 Approved by: Trudi Castellanos MD on 07/11/2021 at 09:06 Normal [facility] PROF 14(COMP METB)on 022 Albumin [Mass/Vol] 3.5 g/dL Normal 3.4-5.0 [facility] Comment on above: Performed By: #### L IPID, CMP #### [facility] [address] [place] [address] Dr. Liborio Eli Albumin/Globulin [Mass ratio] 1.0 {ratio} Normal [facility] Comment on above: Performed By: #### L IPID, CMP #### [facility] [address] [address] [address] Liborio Eli ALP [Catalytic activity/Vol] 66 U/L Normal 46-116 [facility] Comment on above: Performed By: #### L IPID, CMP #### [facility] [address] [address] [address] Liborio Eli ALT [Catalytic activity/Vol] 34 U/L Normal 14-59 [facility] Comment on above: Performed By: #### L IPID, CMP #### [facility] [address] [address] [address] Liborio Eli Anion gap [Moles/Vol] 11.3 mmol/L Normal [facility] Comment on above: Performed By: #### L IPID, CMP #### [facility] [address] [address] [address] Liborio Eli AST [Catalytic activity/Vol] 25 U/L Normal 15-37 [facility] Comment on above: Performed By: #### L IPID, CMP #### [facility] [address] [address] [address] Liborio Eli Bilirubin [Mass/Vol] 0.3 mg/dL Normal 0.2-1.3 [facility] Comment on above: Performed By: #### L IPID, CMP #### [facility] [address] [place] [address] Dr. Liborio Eli Calcium [Mass/Vol] 9.1 mg/dL Normal 8.5-10.1 [facility] Comment on above: Performed By: #### L IPID, CMP #### [facility] [address] [place] [address] Dr. Liborio Eli Chloride [Moles/Vol] 100 mmol/L Normal 98-107 [facility] Comment on above: Performed By: #### L IPID, CMP #### [facility] [address] [place] [address] Dr. Liborio Eli CO2 [Moles/Vol] 30.8 mmol/L Critically high 22.0-30.0 [facility] Comment on above: Performed By: #### L IPID, CMP #### [facility] [address] [address] [address] Liborio Eli Creatinine [Mass/Vol] 0.81 mg/dL Normal 0.52-1.04 [facility] Comment on above: Performed By: #### L IPID, CMP #### [facility] [address] [place] [address] Dr. Liborio Eli EGFR-AF TURKISH >60 Normal >=60 [facility] Comment on above: Performed By: #### L IPID, CMP #### [facility] [address] [address] [address] Liborio Eli EGFR-NON AF TURKISH >60 Normal >=60 [facility] Comment on above: Performed By: #### L IPID, CMP #### [facility] [address] [address] [address] Liborio Eli Globulin (S) [Mass/Vol] 3.6 g/dL Normal [facility] Comment on above: Performed By: #### L IPID, CMP #### [facility] [address] [place] [address] Dr. Liborio Eli Glucose [Mass/Vol] 105 mg/dL Normal 74-106 [facility] Comment on above: Performed By: #### L IPID, CMP #### [facility] [address] [place] [address] Dr. Liborio Eli Potassium [Moles/Vol] 4.1 mmol/L Normal 3.4-5.0 [facility] Comment on above: Performed By: #### L IPID, CMP #### [facility] [address] [place] [address] Dr. Liborio Eli Protein [Mass/Vol] 7.1 g/dL Normal 6.1-8.2 [facility] Comment on above: Performed By: #### L IPID, CMP #### [facility] [address] [place] [address] Dr. Liborio Eli Sodium [Moles/Vol] 138 mmol/L Normal 137-[address] [facility] Comment on above: Performed By: #### L IPID, CMP #### [facility] [address] [place] [address] Dr. Liborio Eli Urea nitrogen [Mass/Vol] 16.0 mg/dL Normal 7.0-18.0 [facility] Comment on above: Performed By: #### L IPID, CMP #### [facility] [address] [place] [address] Dr. Liborio Eli Urea nitrogen/Creatinine [Mass ratio] 19.8 mg/mg Normal [facility] Comment on above: Performed By: #### L IPID, CMP #### [facility] [address] [address] [address] Liborio Eli XR DEXA BONE DENSITYon 07-11 XR DEXA BONE DENSITY EXAMINATION: XR DEX A BONE DENSITY, 07/11/2021 8:00 AM EDT HISTORY: Menopause present COMPARISON: None. TECHNIQUE: Dual-energy X-ray absorptiometry (DEXA) bone density study performed for the axial skeleton. FINDINGS: SPINE ANALYSIS: Average bone mineral density is 1.068 g/cm2. T-score (standard deviation relative to young adult mean): -0.9 . HIP ANALYSIS: Lowest bone mineral density is within the right femoral neck, 0.867 g/cm2. T-score (standard deviation relative to young adult mean): -1.2 . IMPRESSION: World [employer] Organization Classification: Osteopenia - Moderate Fracture Risk Electronically authenticated by: CECILY JACKSON Date: 2021-07-11 09:03 Normal [facility] Covid-19 PCR (CVDTB)on SARS-CoV-2 (COVID-19) RNA RAJ+probe Ql (Unsp spec) Detected Critically abnormal NOT DETECTED [facility] Comment on above: Result Comment: This test is not yet approved or cleared by the [place] FDA. When there are no FDA-approved or cleared tests available, and other criteria are met, FDA can make tests available under an emergency access mechanism called an Emergency Use Authorization (EUA). The EUA for this test is supported by the [place] of Health and Human Service's (HHS's) declaration that circumstances exist to justify the emergency use of in vitro diagnostics for the detection and/or diagnosis of the virus that causes COVID-19. This EUA will remain in effect (meaning this test can be used) for the duration of the COVID-19 declaration justifying emergency of IVDs, unless it is terminated or revoked by FDA (after which the test may no longer be used). Performed By: #### C VDTBH #### [facility] [address], [place] [address] Dr. Liborio Eli MG MAMM DX 3D LT CADon 01-10 MG MAMM DX 3D LT CAD Patient: [place]on SETH Exam Date: 01/10/2021 : 1950 Gender:F Ordering : DR CATRACHITA SMITH M.D. Admission #: [id number] Family : Order #: [id number] CLICK HERE TO VIEW EXAM RADIOLOGY REPORT PROCEDURE: MAMMOGRAM DIAGNOSTIC 3D LEFT CAD, 01/10/2021, 10:23 ULTRASOUND BREAST LEFT LIMITED, 01/10/2021, 10:42 COMPARISON: US BREAST LEFT LIMITED, 07/07/2020. MG MAMM SCREEN 3D ELOISE CAD, 06/22/2020. INDICATIONS: Abnormal findings on diagnostic imaging of breast Calculator Name NCI Breast Cancer Risk Assessment Tool 5 Year Breast Cancer Risk 1.40% Lifetime Breast Cancer Risk 4.40% Personal Breast Cancer No Personal Ovarian Cancer No Treatments None Family Cancers Sister with lung cancer at age 59. LOCATION: [facility] BREAST COMPOSITION: Heterogeneously dense, which may obscure small masses. FINDINGS: DIAGNOSTIC CATEGORY 2--BENIGN FINDING NO CHANGE FROM COMPARISON ASSESSMENT. Scattered benign-appearing calcifications are present. Scattered benign-appearing lymph nodes are present. No focal mammographic abnormality. Ultrasound was performed demonstrating a stable 4 x 3 x 3 mm area anechoic echogenicity at the 7 o'clock position. Lack of change suggests a benign process. Patient was asked to return to yearly screening mammography with repeat June of 2021 RECOMMENDATIONS: ROUTINE MAMMOGRAM AND CLINICAL EVALUATION June 2021. PLEASE NOTE: A NORMAL MAMMOGRAM DOES NOT EXCLUDE THE POSSIBILITY OF BREAST CANCER. A CLINICALLY SUSPICIOUS PALPABLE LUMP SHOULD BE BIOPSIED. Dictated by: Trudi Castellanos MD on 01/10/2021 at 10:49 Approved by: Trudi Castellanos MD on 01/10/2021 at 10:56 Normal [facility] US BREAST LEFT LIMITEDon US BREAST LEFT LIMITED Patient: ALANA SETH Exam Date: 01/10/2021 : 1950 Gender:F Ordering : DR CATRACHITA SMITH M.D. Admission #: [id number] Family : Order #: [id number] CLICK HERE TO VIEW EXAM RADIOLOGY REPORT PROCEDURE: MAMMOGRAM DIAGNOSTIC 3D LEFT CAD, 01/10/2021, 10:23 ULTRASOUND BREAST LEFT LIMITED, 01/10/2021, 10:42 COMPARISON: US BREAST LEFT LIMITED, 07/07/2020. MG MAMM SCREEN 3D ELOISE CAD, 06/22/2020. INDICATIONS: Abnormal findings on diagnostic imaging of breast Calculator Name NCI Breast Cancer Risk Assessment Tool 5 Year Breast Cancer Risk 1.40% Lifetime Breast Cancer Risk 4.40% Personal Breast Cancer No Personal Ovarian Cancer No Treatments None Family Cancers Sister with lung cancer at age 59. LOCATION: [facility] BREAST COMPOSITION: Heterogeneously dense, which may obscure small masses. FINDINGS: DIAGNOSTIC CATEGORY 2--BENIGN FINDING NO CHANGE FROM COMPARISON ASSESSMENT. Scattered benign-appearing calcifications are present. Scattered benign-appearing lymph nodes are present. No focal mammographic abnormality. Ultrasound was performed demonstrating a stable 4 x 3 x 3 mm area anechoic echogenicity at the 7 o'clock position. Lack of change suggests a benign process. Patient was asked to return to yearly screening mammography with repeat June of 2021 RECOMMENDATIONS: ROUTINE MAMMOGRAM AND CLINICAL EVALUATION June 2021. PLEASE NOTE: A NORMAL MAMMOGRAM DOES NOT EXCLUDE THE POSSIBILITY OF BREAST CANCER. A CLINICALLY SUSPICIOUS PALPABLE LUMP SHOULD BE BIOPSIED. Dictated by: Trudi Castellanos MD on 01/10/2021 at 10:49 Approved by: Trudi Castellanos MD on 01/10/2021 at 10:56 Normal [facility] Vital Signs Date Time Vital Sign Value Performing Clinician Facility 08-11-2023 13:00-0400 Diastolic blood pressure 63 mm[Hg] MD Catrachita Smith Work Phone: [facility] 08-11-2023 13:00-0400 Heart rate 76 /min MD Catrachita Smith Work Phone: [facility] 08-11-2023 13:00-0400 Respiratory rate 16 /min MD Catrachita Smith Work Phone: [facility] 08-11-2023 13:00-0400 SaO2% (BldA) [Mass fraction] 98 % MD Catrachita Smith Work Phone: [facility] 08-11-2023 13:00-0400 Systolic blood pressure 115 mm[Hg] MD Catrachita Smith Work Phone: [facility] 08-11-2023 11:57-0400 Body height 162.56 cm MD Catrachita Smith Work Phone: [facility] 08-11-2023 11:57-0400 Body weight 76.2 kg MD Catrachita Smith Work Phone: [facility] 05-29-2023 15:10-0500 Diastolic blood pressure 79 mm[Hg] MD Catrachita Smith Work Phone: [facility] 05-29-2023 15:10-0500 Heart rate 81 /min MD Catrachita Smith Work Phone: [facility] 05-29-2023 15:10-0500 Respiratory rate 16 /min MD Catrachita Smith Work Phone: [facility] 05-29-2023 15:10-0500 SaO2% (BldA) [Mass fraction] 97 % MD Catrachita Smith Work Phone: [facility] 05-29-2023 15:10-0500 Systolic blood pressure 129 mm[Hg] MD Catrachita Smith Work Phone: [facility] 05-29-2023 12:46-0500 Body height 162.56 cm MD Catrachita Smith Work Phone: [facility] 05-29-2023 12:46-0500 Body temperature 98.2 [degF] MD Catrachita Smith Work Phone: [facility] 05-29-2023 12:46-0500 Body weight 75.29 kg MD Catrachita Smith Work Phone: [facility] 04-22-2023 09:00-0500 Body height 162.56 cm Catrachita Smith Other [facility] 04-22-2023 09:00-0500 Body mass index (BMI) [Ratio] 29.31 kg/m2 Catrachita Smith Other [facility] [employer] Other 04-22-2023 09:00-0500 Body weight 77.47 kg Catrachita Smith Other [facility] 04-22-2023 09:00-0500 Diastolic blood pressure 82 mm[Hg] Catrachita Smith Other [facility] 04-22-2023 09:00-0500 Systolic blood pressure 135 mm[Hg] Catrachita Smith Other [facility] 06-26-2021 11:00-0400 Body height 162.56 cm Apolinar Hernandez Other [facility] [employer] Other 06-26-2021 11:00-0400 Body mass index (BMI) [Ratio] 29.01 kg/m2 Apolinar Olexa Other [facility] [employer] Other 06-26-2021 11:00-0400 Body weight 76.66 kg Apolinar Olexa Other [facility] [employer] Other Encounters Encounter Date Encounter Type Care Provider Facility Start: 08-11-2023 End: 08-11-2023 ambulatory Catrachita Smith Facility:[facility] Start: 08-11-2023 Non-patient / Non-visit MD Catrachita Smith Work Phone: [facility] Work Phone: Start: 08-11-2023 End: 08-11-2023 Admission to same day surgery center MD Catrachita Smith Work Phone: [facility] Work Phone: Start: 08-11-2023 End: 08-11-2023 ambulatory MD Catrachita Smith Work Phone: [facility] Work Phone: Start: 05-29-2023 Non-patient / Non-visit MD Catrachita Smith Work Phone: [facility] Work Phone: Start: 05-29-2023 End: 05-29-2023 ambulatory Catrachita Smith Facility:[facility] Start: 05-29-2023 End: 05-29-2023 Admission to same day surgery center MD Catrachita Smith Work Phone: [facility] Work Phone: Start: 05-29-2023 End: 05-29-2023 ambulatory MD Catrachita Smith Work Phone: [facility] Work Phone: Start: 05-28-2023 Non-patient / Non-visit MD Catrachita Smith Work Phone: [facility] [employer] Work Phone: Start: 05-06-2023 End: 05-06-2023 ambulatory Imad Asaad Other [employer] Other Start: 05-06-2023 Telephone encounter Imronda Ugaldead [facility] Start: 04-28-2023 End: 04-28-2023 ambulatory Catrachita Smith Other [employer] Other Start: 04-28-2023 Telephone encounter Catrachita Smith [facility] Start: 04-22-2023 End: 04-22-2023 ambulatory Catrachita Smith Other [employer] Other Start: 04-22-2023 Patient encounter procedure Catrachita Smith [facility] Start: 04-22-2023 End: 04-22-2023 Patient encounter procedure MD Catrachita Smith Work Phone: [facility] Work Phone: Start: 04-08-2023 End: 04-08-2023 ambulatory Catrachita Smith Other [employer] Other Start: 04-08-2023 Encounter for genera l adult medical examination without abnormal findings Catrachita Smith [facility] Start: 04-08-2023 Telephone encounter Catrachita Smith [facility] Start: 02-14-2023 End: 02-14-2023 ambulatory REJI FOSTER Facility:[facility] Start: 06-18-2022 End: 06-19-2022 ambulatory Catrachita Smith [facility] Start: 11-06-2021 End: 11-06-2021 ambulatory Gaby Mohan Other [employer] Other Start: 11-06-2021 Office outpatient visit 25 minutes Gaby Mohan [facility] Start: 10-09-2021 End: 10-09-2021 ambulatory Gaby Mohan Other [employer] Other Start: 10-09-2021 Office outpatient ne w 30 minutes Gaby Mohan [facility] Start: 10-09-2021 End: 10-09-2021 Patient encounter procedure MD Gaby Mohan Work Phone: [facility] Start: 07-11-2021 End: 07-12-[address] CATRACHITA SMITH Facility:[facility] Start: 06-26-2021 End: 06-26-2021 ambulatory Apolinar Olexa Other [employer] Other Start: 06-26-2021 Office outpatient ne w 30 minutes Apolinar Olexa [facility] Start: 06-22-2021 Adult health examination Catrachita Smith Other [employer] Other Start: 04-12-2021 End: 04-12-[address] CATRACHITA SMITH Facility:[facility] Start: 01-10-2021 End: 01-11-[address] CATRACHITA SMITH Facility:[facility] Procedures Date Procedure Procedure Detail Performing Clinician Start: 08-11-2023 Esophagogastroduodenoscopy MD Catrachita Padilla un Work Phone: Start: 05-29-2023 Esophagogastroduodenoscopy MD Catrachita Padilla un Work Phone: Start: 10-09-2021 Plain X-ray of right hand MD Gaby richardson Work Phone: Start: 06-07-2015 Screening mammography Catrachita Smith Other Start: 12-22-2013 General examination of patient Catrachita fong Other Screening for malign ant neoplasm of breast Catrachita Smith Other Plan of Treatment Date Care Activity Detail Author Start: 08-11-2023 [facility] Start: 05-29-2023 [facility] Patient Education [facility] Work Phone: Payers Date Payer Category Payer Self-pay [id number] 1957 Medicare [id number] 1950 Unknown [id number] 1950 Unknown [id number] 2.16.84 [id number] 1950 Unknown [id number] 2.16.84 [id number] 1950 Unknown [id number] 2.16.8 [id number] 1950 Unknown [id number] 2.16.8 [id number] Private Health Insurance [id number] Unknown [id number] 2.16.8 [id number] Unknown [id number] 2.16.8 [id number] Social History Date Type Detail Facility Sex Assigned At [employer] Other Start: 1950 Sex Assigned At Female [facility] Start: 05-29-2023 End: 05-29-2023 Tobacco smoking status NHIS Never smoked tobacco (finding) [facility] Goals Date Patient Goal Desired Activity /State Clinical Notes 06-26-2021 to 08-11-2023 Note Date & Type Note Facility 08-11-2023 Procedure note [facility] 05-29-2023 Procedure note [facility] 04-22-2023 Evaluation note Encounter Date Diagnosis Assessment Notes Apr, Medicare annual wellness visit, subsequent (ICD-10 - Z00.00) Personalized health advice was given to the beneficiary including a written plan for screenings discussed and provided. Advanced care planning reviewed and/or information given as requested. Additional counseling was provided here today in regards to, [ ]. The above visit was performed by [ ], under direct supervision of [ ]. Document reviewed and amended by provider signed below. Apr, Screening mammogram for breast cancer (ICD-10 - Z12.31) Apr, Esophageal dysphagia (ICD-10 - R13.19) Pt denies heartburn. Agrees to referral to GI for likely EGD. Apr, Essential (primary) hypertension (ICD-10 - I10) Blood pressure remains well controlled at this time. Denies cardiac symptoms. Shows no signs or symptoms or poor control. Patient to continue with above medication and we will continue to monitor. Advised to pay attention to body and symptoms. Any developing patterns. Stay well hydrated. Apr, Dyslipidemia (ICD-10 - E78.5) Had labs earlier today. Continue present med unless otherwise noted. [facility] Other 01-02-2024 Evaluation note* Encounter Date Diagnosis Assessment Notes Treatment Notes Treatment Clinical Notes Apr, Wellness examination (ICD-10 - Z00.00) Apr, Primary hypertension (ICD-10 - I10) [facility] Other 11-10-2023 NotePatient Education Materials Follows: Abrasion An abrasion is a cut or a scrape on the surface of the skin. An abrasion does not go through all the layers of the skin. It is important to care for an abrasion properly to prevent infection. What are the causes? This condition is caused by rubbing your skin on something or falling on a surface, such as the ground. When your skin rubs on something, some layers of skin may rub off. What are the signs or symptoms? The main symptom of this condition is a cut or a scrape. The cut or scrape may be bleeding, or it may appear red or pink. If your abrasion was caused by a fall, there may be a bruise under your cut or scrape. How is this diagnosed? An abrasion is diagnosed with a physical exam. How is this treated? Treatment for this condition depends on how large and deep the abrasion is. In most cases: ? Your abrasion will be cleaned with water and mild soap. This is done to remove any dirt or debris(such as tiny bits of glass or rock) that may be stuck in your wound. ? An antibiotic ointment may be applied to your abrasion to help prevent infection. ? A bandage (dressing) may be placed on your abrasion to keep it clean. You may also need a tetanus shot. Follow these instructions at home: Medicines ? Take or apply [id number] and prescription medicines only as told by your health care provider. ? If you were prescribed an antibiotic medicine, use it as told by your health care provider. Do not stop using the antibiotic even if you start to feel better. Wound care ? Clean your wound 1 or 2 times a day, or as told by your health care provider. To do this: 1. Wash your hands for at least 20 seconds with mild soap and water. Do this before and after you clean your wound. 2. Wash your wound with mild soap and water and then rinse off the soap. 3. Pat your wound dry with a clean towel. Do not rub your wound. ? Keep your dressing clean and dry as told by your health care provider. ? There are many different ways to close and cover a wound. Follow instructions from your health care provider about caring for your wound and about changing and removing your dressing. You may have to change your dressing one or more times a day, or as directed by your health care provider. ? Check your wound every day for signs of infection. Check for: ? Redness, especially a red streak that spreads out from your wound. ? Swelling or increased pain. ? Warmth. ? Blood, fluid, pus, or a bad smell. Managing pain and swelling ? If directed, put ice on the injured area. To do this: ? Put ice in a plastic bag. ? Place a towel between your skin and the bag. ? Leave the ice on for 20 minutes, 2?3 times a day. ? Remove the ice if your skin turns bright red. This is very important. If you cannot feel pain, heat, or cold, you have a greater risk of damage to the area. ? If possible, raise (elevate) the injured area above the level of your heart while you are sittingor lying down. General instructions ? Do not take baths, swim, or use a hot tub until your health care provider approves. Ask your doctor about taking showers or sponge baths. ? Keep all follow-up visits. This is important. Contact a health care provider if: ? You received a tetanus shot, and you have swelling, severe pain, redness, or bleeding at your injection site. ? Your pain is not controlled with medicine. ? You have a fever. ? You have any of these signs of infection: ? Redness, swelling, or more pain around your wound. ? Warmth coming from your wound. ? Blood, fluid, pus, or a bad smell coming from your wound. Get help right away if: ? You have a red streak spreading away from your wound. Summary ? An abrasion is a cut or a scrape on the surface of the skin. Care for your abrasion properly to prevent infection. ? Clean your wound with mild soap and water 1 or 2 times a day or as often as told. Follow instructions from your health care provider about taking medicines and changing your bandage (dressing). ? Contact your health care provider if you have a fever or if you have redness, swelling, or more pain around your wound. ? Contact your health care provider if you have warmth, blood, fluid, pus, or a bad smell coming from your wound. ? Get help right away if there is a red streak spreading away from your wound. This information is not intended to replace advice given to you by your health care provider. Make sure you discuss any questions you have with your health care provider. Document Revised: 06/22/2020 Document Reviewed: 06/22/2020 [employer] Patient Education ? 2022 [id number] Evaluation note* Encounter Date Diagnosis Assessment Notes Treatment Notes Treatment Clinical Notes Nov, Trigger thumb, left thumb (ICD-10 - M65.312) Nov, Trigger finger, righ t ring finger (ICD-10 - M65.341) This appears to right ring trigger finger. We discussed the cause of this condition and the treatment options. We discussed stretching of the finger as well as massage of the palmar MCP region. We discussed the use of cortisone injection into the palmar aspect of the hand at the trigger site can be helpful in relieving painful symptoms. We also discussed the option of surgical release which can eliminate the problem. We performed a cortisone injection into the palmar aspect of the finger near at the A1 nikki under sterile technique. The patient tolerated this well without complication. We discussed that the finger may feel numb and tingle for hours after this injection. Nov, Dupuytren's disease (ICD-10 - M72.0) Nov, Primary osteoarthrit is of first carpometacarpal joint of right hand (ICD-10 - M18.11) Nov, Primary osteoarthrit is of right hand (ICD-10 - M19.041) Nov, Right hand pain (ICD-10 - M79.641) [employer] Other 07-05-2022 Evaluation note* Encounter Date Diagnosis Assessment Notes Treatment Notes Treatment Clinical Notes Oct, Trigger thumb, left thumb (ICD-10 - M65.312) Oct, Right hand pain (ICD-10 - M79.641) Oct, Dupuytren's disease (ICD-10 - M72.0) This appears to Dupetrens. We discussed the cause of this condition and the treatment options. We discussed stretching of the fingers as well as massage of the palmar region. We discussed the use of cortisone injection into the nodules of the hand can be helpful in relieving painful symptoms. We also discussed the option of Xiaflex injection which can help get rid of the problem. We could also try some compound topical medication to help with pain and inflammation. Oct, Primary osteoarthritis of first carpometacarpal joint of right hand (ICD-10 - M18.11) The patient is suffering from degenerative arthritis involving the thumb CMC joint. We discussed the conservative treatment options which can be beneficial in relieving pain, including hand occupational therapy, wearing a brace, and non-steroidal anti-inflammatory medication. We discussed the use of occasional cortisone injections that can provide pain relief. Patient given order for occupational therapy Oct, Primary osteoarthritis of right hand (ICD-10 - M19.041) [employer] Other 03-22-2022 Evaluation note* Encounter Date Diagnosis Assessment Notes Treatment Notes Treatment Clinical Notes Jun, Trigger thumb, left thumb (ICD-10 - M65.312) This appears to trigger finger. We discussed the cause of this condition and the treatment options. We discussed stretching of the finger as well as massage of the palmar MCP region. We discussed the use of cortisone injection into the palmar aspect of the hand at the trigger site can be helpful in relieving painful symptoms. We also discussed the option of surgical release which can eliminate the problem. We performed marcaine/40mg kenalog cortisone injection into the palmar aspect of the finger near at the A1 nikki under sterile technique. The patient tolerated this well without complication. We discussed that the finger may feel numb and tingle for hours after this injection. Jun, Dupuytren's disease (ICD-10 - M72.0) Extensive discussion about current condition and treatment options available. Advised patient follow up with Dr Mohan for further treatment options. [employer] Other Evaluation noteNo assessment information available [facility] Work Phone: Evaluation noteNo Information[facility]ort[facility] Other History and physical note Author Niecy Caceres [facility] May 29, 2023 2:26pm Note Date/Time May 29, 2023 2:26pm [facility] [address] [place] [address] Gastroenterology H&P Signed Patient: Alana Seth MR#: [id number] : 1950 Acct:[id number] Age/Sex: 73 / F Adm Date: 4 Loc: Room: Type: [facility] Attending Dr: Niecy Caceres MD Copies to: MD Catrachita Atwood MD~ Date of Service: 05/29/2023 HISTORY & PHYSICAL: Patient's history with special attention to the cardiovascular, pulmonary systems and the current problem was reviewed with the patient immediately prior to the procedure. Present medications and doses reviewed in the EMR. Allergies and pertinent laboratory tests were also reviewedat this time in the EMR. The physical examination, as below, was then performed. Indication, assessment and HPI: 73-year-old female with family history of esophageal cancer here for EGD for evaluation of dysphagia Family history of GI malignancy? Yes PHYSICAL EXAMINATION Mouth and Pharynx : Moist mucus membranes, normal dentition Cardiac: Regular rate, regular rhythm Pulmonary: Clear to auscultation bilaterally, no wheezing Neurological: Alert and oriented x3, no focal deficits noted Abdomen: Abdomen soft, non-tender REVIEW OF SYSTEMS Constitutional: Denies malaise, fevers Cardiovascular: Denies chest pain, palpitations Respiratory: Denies shortness of breath, wheezing Gastrointestinal: Per HPI Genitourinary: Denies dysuria, polyuria Musculoskeletal: Denies joint swelling, joint stiffness Neurological: Denies numbness, tingling Integumentary: Denies rashes, skin lesions Endocrine: Denies fatigue, weight loss Written informed consent obtained from the patient. Risks (including but not limited to perforation, infection, bloating, bleeding, need for emergent surgery and loss of life), benefits and alternatives explained and questions answered. The patient verbalized understanding. Based on history patient is an appropriate candidate for the procedure. Niecy Caceres M.D. Documented By: Niecy Caceres MD 05/29/231424 Signed By: <Electronically signed by Niecy Caceres MD> 05/29/23 1426 [facility] Work Phone: History and physical note Author Niecy Caceres [facility] August 11, 2023 11:52am Note Date/Time August 11, 2023 11:52a m [facility] [address] [place] [address] Gastroenterology H&P Signed Patient: Alana Seth MR#: [id number] : 1950 Acct:[id number] Age/Sex: 73 / F Adm Date: 4 Loc: Room: Type: [facility] Attending Dr: Niecy Caceres MD Copies to: MD Catrachita Atwood MD~ Date of Service: 08/11/2023 HISTORY & PHYSICAL: Patient's history with special attention to the cardiovascular, pulmonary systems and the current problem was reviewed with the patient immediately prior to the procedure. Present medications and doses reviewed in the EMR. Allergies and pertinent laboratory tests were also reviewedat this time in the EMR. The physical examination, as below, was then performed. Indication, assessment and HPI: 73-year-old female with history of esophagitis and esophageal stricture here for EGD to assess for Alston's and for possible dilation Family history of GI malignancy? No PHYSICAL EXAMINATION General appearance: Pleasant, NAD Skin: No jaundice Head: NC/AT Eyes: Anicteric Neck: Supple Lungs: Normal respiratory effort, no use of accessory muscles Abdomen: Soft, nondistended Neuro: Ox3. REVIEW OF SYSTEMS Constitutional: Denies malaise, fevers Cardiovascular: Denies chest pain, palpitations Respiratory: Denies shortness of breath, wheezing Gastrointestinal: As per HPI Genitourinary: Denies dysuria, polyuria Musculoskeletal: Denies joint swelling, joint stiffness Neurological: Denies confusion, numbness, tingling Endocrine: Denies fatigue Written informed consent obtained from the patient. Risks (including but not limited to perforation, infection, bloating, bleeding, need for emergent surgeryand loss of life), benefits and alternatives explained and questions answered. The patient verbalized understanding. Based on history patient is an appropriate candidate for the procedure. Niecy Caceres M.D. Documented By: Niecy Caceres MD 08/11/23 1152 Signed By: <Electronically signed by Niecy Caceres MD> 08/11/23 1152 [facility] Work Phone: History general Narrative - Reported* Type Description Date Medical History Hypertension Medical History hyperlipidemia Medical History osteomylitis Surgical History cervical fusion 2002 Surgical History hysterectomy 1987 Surgical History Foot Surgery 1994 [employer] Other History general Narrative - Reported* Type Description Date Medical History Hypertension Medical History hyperlipidemia Medical History osteomylitis Surgical History Problem Title : past surgical history reviewed, Problem Description : past surgical history reviewed, Problem Comment : reviewed - no changes required, Problem Status : Active, Surgical History Problem Title : surg ical procedures, hx of, Problem Description : surgical procedures, hx of, Problem Comment : Total hysterectomy 1979 Cervical fusion 2002 - Dr. Michael Acuña surgery , Problem Status : Active, Surgical History 1: Problem Title : s urgical procedures, hx of, Problem Description : surgical procedures, hx of, Problem Comment : Total hysterectomy 1980 Cervical fusion 2002 - Dr. Michael Acuña surgery Cytoscopy and uretheral dilation 04/25 - Dr. Licona, Surgical History 2: Problem Status : Active, [employer] Other History general Narrative - Reported* Type Description Date Medical History Hypertension Medical History hyperlipidemia Medical History osteomylitis Surgical History cervical fusion 2002 Surgical History hysterectomy 1987 Surgical History Foot Surgery 1994 Surgical History Cataract surgery bilateral , [employer] Other Summary Purpose Family History No Family History Records Found Relationship Condition Age at Onset Recorded Date/T jamar father Unknown family member Family history of other condition Unknow n Not Specified Unknown Family history of mental disorder Unknown History of stroke Unknown Hypertension Unknown natural son Malignant neoplasm Unknown sister Malignant neoplasm of lung Unknown Advance Directives No Advanced Directives Records Found Advance Directive Response Recorded Date/ Time Advance Directives No October 10 10:55am Advance Directive Response Recorded Date/ Time Advance Directives No October 10 2 11:55am Reason for Referral Reason *Waiting for appt Sensation of foods sticking in her substernal aspect of esophagus. Son has esophageal cancer. Diagnosis 1 Esophageal dysphagia (R13.19) Referral Organization [facility] Referring Provider First Name Catrachita Referring Provider Last Name Luis Referring Provider Specialty Family [facility] Referred Organization [facility] Gastroenterolo gy Referred Provider Silas Taylor Referred Address [address] [place] [phone] Referred Provider Specialty Gastroentero logy Referral Priority Routine General Notes Keke Dill 02:55:26 PM >received today, referral faxed P2P Chief Complaint and Reason for Visit Chief Complaint Wellness Amb Documentation Esophageal Dysphagia, Esophageal Cancer in Son Esophageal Dysphagia, Esophageal Cancer in Son Chief Complaint Amb Documentation Esophageal Dysphagia, Esophageal Cancer in Son Esophageal Dysphagia, Esophageal Cancer in Son Esophageal Stricture/Esophagitis. Esophageal Stricture/Esophagitis. Additional Source Comments INFORMATION SOURCE (unrecogn ized section and content) DATE CREATED AUTHOR [facility] DATE CREATED AUTHOR AUTHOR'S ORGANIZ ATION 02/23/2023 [facility] DATE CREATED AUTHOR AUTHOR'S ORGANIZ ATION 08/22/2023 [facility] REASON FOR VISIT (unrecogniz ed section and content) Bilateral hand painRight Eagle d PainRecheck Right HandWellness Lab OrdersWellnessmessage, labsMAIL PPW Care Teams (unrecognized sec tion and content) Team Status: Active Member Role Status Dates Catrachita Smith MD Primary Care Provider Active Team Status: Active Member Role Status Dates Catrachita Smith MD Primary Care Provider Active Start: May 28, 2023 TOPHER Kevin Attending Provider Active Start : May 28, 2023 Team Status: Inactive Member Role Status Dates Catrachita Smith MD Primary Care Provider Active Start: May 29, 2023 End: May 29, 2023 Niecy Caceres MD Attending Provider Active Start: May 29, 2023 End: May 29, 2023 Team Status: Active Member Role Status Dates Catrachita Smith MD Primary Care Provider Active Start: May 29, 2023 Niecy Caceres MD Attending Provider, Other Provider Active Start: May 29, 2023 Team Status: Inactive Member Role Status Dates Catrachita Smith MD Primary Care Provider Active Start: August 11, 2023 End: August 11, 2023 Niecy Caceres MD Attending Provider Active Start: August 11, 2023 End: August 11, 2023 Team Status: Active Member Role Status Dates Catrachita Smith MD Primary Care Provider Active Start: August 11, 2023 Niecy Caceres MD Attending Provider, Other Provider Act daniel Start: August 11, 2023 Team Status: Inactive Member Role Status Dates Gaby Mohan MD Attending Provider Active Team Status: Inactive Member Role Status Dates Catrachita Smith MD Attending Provider Active St art: April 22, 2023 End: April 22, 2023 Goals (unrecognized section and content) Goals may be documented in a n alternate section FOR RECORDS PERTAINING TO PATIENTS WHO ARE OR HAVE BEEN ENROLLED IN A CHEMICAL DEPENDENCY/SUBSTANCEABUSE PROGRAM, SOME INFORMATION MAY BE OMITTED. This clinical summary was aggregated from multiple sources. Caution should be exercised in using it in the provision of clinical care. This summary normalizes information from multiple sources, and as a consequence, information in this document may materially change the coding, format and clinical context of patient data. In addition, data may be omitted in some cases. CLINICAL DECISIONS SHOULD BE BASED ON THE PRIMARY CLINICAL RECORDS. [facility]. provides no warranty or guarantee of the accuracy or completeness of information in this document.
== END 2023-12-10 10:22 | disposition home or self-care (01) ==
LOC: MAMMO 10:22
PROVIDERS: PCP Family Medicine; Visit Provider Family Medicine
DX: Z12.31 Encounter for screening mammogram for malignant neoplasm of breast (principal); Z80.1 Family history of malignant neoplasm of trachea, bronchus and lung
CPT/HCPCS: 77063; 77067